=== PATIENT | male | born 1960 | race African-American/Black ===

== ENCOUNTER 2018-01-30 12:23 | Outpatient (CLI) | payer OTHER | END 2018-01-30 12:24 | disposition home or self-care (01) | LOC: CP 12:23 | PROVIDERS: ATTEND Physician Assistant | DX: J45.20 Mild intermittent asthma, uncomplicated (principal) | CPT/HCPCS: 94060; 94727; 94729 ==

== ENCOUNTER 2018-11-03 00:05 | Outpatient (CLI) | payer OTHER ==
[2018-11-03 12:00] LABS: #Eosinphils 0.1 thou/uL (0.0-0.7); #Lymphocytes 1.3 thou/uL (1.20-3.40); #Monocytes 0.6 thou/uL (0.11-0.59); #Neutrophils 3.7 thou/uL (1.40-6.50); %Basophils 0.7 % (0.0-1.0); %Eosinophils 2.2 % (0.0-10.0); %Lymphocytes 22.3 % (21.0-51.0); %Monocytes 9.6 % (0.0-10.0); %Neutrophils 65.3 % (42.0-75.0); Hemoglobin 11.7 g/dL (14.0-18.0); Mean Corpuscular HGB CONC 32.2 g/dL (32.0-36.0); Mean Corpuscular Hemoglobin 31.9 pg (27.0-31.0); Mean Corpuscular Volume 99.2 fL (78.0-98.0); Mean Platelet Volume 7.2 fL (7.4-10.4); Platelet Count 231 thou/uL (130-400); RBC Distribution Width 11.2 % (11.5-14.5); Red Blood Cell (RBC) Count 3.67 mill/uL (4.70-6.10); White Blood Cell (WBC) Count 5.7 thou/uL (4.8-10.8)
[2018-11-03 12:12] LABS: ALT (SGPT) 15 U/L (8-55); AST (SGOT) 15 U/L (5-34); Albumin 4.3 g/dL (3.5-5.0); Alkaline Phosphatase 82 U/L (40-150); Anion Gap 13 mmol/L (10-20); BUN (Urea Nitrogen) 12 mg/dL (8.4-25.7); Bilirubin, Total 1.1 mg/dL (0.2-1.2); Calc. Creatinine Clearance 0 mL/min (70-130); Calcium 9.2 mg/dL (7.8-10.44); Carbon Dioxide 24 mmol/L (22-29); Cardiac Risk 2.7 (Less than 4.5); Chloride 106 mmol/L (98-107); Cholesterol 140 mg/dl (< 200 Desired); Estimated GFR-MDRD 78; Globulin 3.2 g/dL (2.4-3.5); Glucose 97 mg/dL (70-105); HDL Cholesterol 52 mg/dL (>60 Neg Risk); LDL Cholesterol, Calculated 77 mg/dL; Potassium 3.6 mmol/L (3.5-5.1); Protein, Total 7.5 g/dL (6.0-8.3); Sodium 139 mmol/L (136-145); Triglycerides 54 mg/dL (Less than 150)
== END 2018-11-03 00:06 | disposition home or self-care (01) ==
LOC: LABBT 00:05
PROVIDERS: ATTEND Internal Medicine Cardiovascular Disease
DX: Z01.812 Encounter for preprocedural laboratory examination (principal); R07.9 Chest pain, unspecified
CPT/HCPCS: 80053; 80061; 85025

== ENCOUNTER 2018-11-06 07:37 | Day surgery (SDC) | payer OTHER ==
[2018-11-06] MEDS ORDERED: Iopamidol 370 76% 100 ML VIAL ONE (09:47)
[2018-11-06 10:50] LABS: PTT 28.9 SEC (22.9-36.1)
[2018-11-06] MEDS ORDERED: Midazolam HCl 2 mg/2 ml Vial ONE (12:46)
[2018-11-06] MEDS ORDERED: Fentanyl 100 MCG/2 ML VIAL ONE (12:46)
== END 2018-11-06 16:14 | disposition home or self-care (01) ==
LOC: CCL 07:37
PROVIDERS: ATTEND Internal Medicine Cardiovascular Disease
PROC: B2111ZZ Fluoroscopy of Multiple Coronary Arteries using Low Osmolar Contrast (ICD-10-PCS; principal; 2018-11-06)
PROC: 4A023N7 Measurement of Cardiac Sampling and Pressure, Left Heart, Percutaneous Approach (ICD-10-PCS; principal; 2018-11-06)
DX: R07.9 Chest pain, unspecified (principal); I10 Essential (primary) hypertension; Z87.891 Personal history of nicotine dependence
CPT/HCPCS: 36415; 85610; 85730; 93458; 99152; C1769; J1644; J2250; J3010; Q9967

== ENCOUNTER 2022-04-18 05:34 | Day surgery (SDC) | payer OTHER ==
[2022-04-17 13:49] VITALS: BMI 24.8
[2022-04-18] MEDS ORDERED: Fentanyl 100 MCG/2 ML VIAL ONE (09:29)
[2022-04-18] MEDS ORDERED: Midazolam HCl 2 mg/2 ml Vial ONE (09:30)
[2022-04-18] MEDS ORDERED: Heparin 10,000 UNITS/ 10 ML VIAL ONE (09:30)
[2022-04-18] MEDS ORDERED: Lidocaine 1% PF 5 ML VIAL ONE (09:30)
[2022-04-18] MEDS ORDERED: Verapamil 5 MG/2 ML VIAL ONE (09:30)
[2022-04-18] MEDS ORDERED: Nitroglycerin 100MG/250ML BOT 250 ML ONE (09:31)
[2022-04-18 09:43] LABS: Cardiac Risk 2.7 (Less than 4.5)
[2022-04-18] MEDS ORDERED: Iopamidol 370 76% 125 ML VIAL FS ONE (12:46)
[2022-04-18] MEDS ORDERED: Bupivacaine PF 0.5% 30 ML VIAL ONE (13:18)
[2022-04-18] MEDS ORDERED: EPINEPHrine 1 MG/ML AMP ONE (13:18)
[2022-04-18] MEDS ORDERED: Heparin 5,000 UNITS/ML VIAL ONE (13:18)
[2022-04-18] MEDS ORDERED: Protamine Sulfate 50 MG/5 ML VIAL ONE (13:18)
== END 2022-04-18 13:31 | disposition home or self-care (01) ==
LOC: SDC 05:34
PROVIDERS: ATTEND Internal Medicine Cardiovascular Disease
PROC: 4A023N7 Measurement of Cardiac Sampling and Pressure, Left Heart, Percutaneous Approach (ICD-10-PCS; principal; 2022-04-18)
PROC: B2111ZZ Fluoroscopy of Multiple Coronary Arteries using Low Osmolar Contrast (ICD-10-PCS; principal; 2022-04-18)
DX: I25.10 Atherosclerotic heart disease of native coronary artery without angina pectoris (principal); I10 Essential (primary) hypertension; F17.210 Nicotine dependence, cigarettes, uncomplicated; Z79.82 Long term (current) use of aspirin; Z79.899 Other long term (current) drug therapy
CPT/HCPCS: 36415; 80061; 93458; 99152; J0171; J1644; J2250; J2720; J3010; Q9967; S0020